=== PATIENT | male | born 1960 | race Hispanic/Latino ===

== ENCOUNTER → 2017-04-01 | Outpatient (CLI) | payer OTHER ==
--- NOTE | 2017-04-01 10:52 | REP ---
Lumbar spine seven views: There is mild scoliosis convex left at the thoracolumbar junction and right at the lumbosacral junction. This could be positional. Mineralization is normal. Vertebral body heights and alignment are normal. There is no spondylolysis or spondylolisthesis. There is disc space narrowing and degenerative disc disease at L5 S1. The facets and pedicles are unremarkable. The sacroiliac articulations are unremarkable. Impression: Scoliosis. Degenerative disc disease at L5 S1. Otherwise, negative lumbar spine. Signed by Binh Coyne MD 04/01/2017 10:43 A
--- NOTE | 2017-04-01 11:37 | REP ---
LEFT SHOULDER SERIES: Three views of the left shoulder are performed. There is no acute fracture or dislocation. There is mild narrowing and spurring at the acromioclavicular joint. IMPRESSION: Mild degenerative changes AC joint. Signed by Binh Saenz MD 04/01/2017 03:28 P
== END ==
LOC: M RAD 09:15
PROVIDERS: ATTEND Surgery
DX: M41.9 Scoliosis, unspecified (principal); M51.37 Other intervertebral disc degeneration, lumbosacral region; M19.012 Primary osteoarthritis, left shoulder; M25.512 Pain in left shoulder; M54.5 Low back pain